=== PATIENT | male | born 1970 | race Caucasian/White ===

== ENCOUNTER 2019-06-02 00:01 | Inpatient (IN) ==
[2019-06-02] MEDS ORDERED: Ondansetron 4 MG/2 ML VIAL IVP ONE (00:22)
[2019-06-02] MEDS ORDERED: 0.9 % Sodium Chloride 1,000 ML IVC ONE (00:31)
[2019-06-02] MEDS ORDERED: Isovue-370 500 ML BOTTLE IVP ONE (00:31)
[2019-06-02] MEDS ORDERED: *HR* HYDROmorphone (PF) 1 MG/ML SYRINGE IVP ONE ×2 (00:31→01:32)
[2019-06-02 00:55] LABS: Basophils % 0.5 %; Eosinophils # 0.3 K/mcL (0.0-0.6); Eosinophils % 4.6 %; Hematocrit 41.6 % (37.5-50.1); Hemoglobin 14.4 g/dL (12.9-16.9); Immature Granulocytes % 0.3 % (0-4); Lymphocytes # 2.7 K/mcL (0.6-4.6); Lymphocytes % 40.7 %; Mean Corpuscular HGB Conc 34.6 g/dL (31.6-35.5); Mean Corpuscular Hemoglobin 33.5 pg (28.0-33.3); Mean Corpuscular Volume 96.7 fL (83.0-100.0); Monocytes # 0.5 K/mcL (0.0-1.3); Monocytes % 7.6 %; Platelet Count 281 K/mcL (140-400); Red Cell Distribution Width 12.6 % (11.5-14.5); Segmented Neutrophils % 46.3 %; White Blood Count 6.5 K/mcL (4.3-11.1)
[2019-06-02 01:06] LABS: Alanine Aminotransferase 41 Units/L (7-52); Albumin 4.4 g/dL (3.5-5.7); Albumin/Globulin Ratio 1.5 (1.1-2.2); Alkaline Phosphatase 110 Units/L (34-104); Aspartate Amino Transferase 48 Units/L (13-39); BUN/Creatinine Ratio 8 (6-26); Bilirubin,Direct 0.1 mg/dL (0.0-0.2); Bilirubin,Indirect 0.2 mg/dL (0.0-1.0); Bilirubin,Total 0.3 mg/dL (0.3-1.0); Blood Urea Nitrogen 7 mg/dL (6-20); Calcium 9.6 mg/dL (8.6-10.3); Carbon Dioxide 24 mEq/L (23-29); Chloride 103 mEq/L (98-107); Globulin 2.9 g/dL (2.4-3.5); Glucose 106 mg/dL (70-105); Lipase 42 Units/L (11-82); Osmolality,Calculated 276 (280-300); Potassium 4.5 mEq/L (3.5-5.1); Sodium 134 mEq/L (136-145); Total Protein 7.3 g/dL (6.4-8.9); eGFR For African Americans > 60 (> 60); eGFR For Non-African Americans > 60 (> 60)
[2019-06-02 02:37] LABS: Bilirubin,Urine Negative (Negative); Blood,Urine Negative (Negative); Clarity,Urine Clear (Clear); Color,Urine Yellow (Yellow); Glucose,Urine (UA) Normal (Normal); Ketones,Urine Trace mg/dL (Negative); Leukocyte Esterase,Urine Negative (Negative); Nitrite,Urine Negative (Negative); Protein,Urine Trace mg/dL (Neg-Trace); Specific Gravity,Urine > 1.030 (1.010-1.025); Urobilinogen,Urine Normal (Normal)
[2019-06-02] MEDS ORDERED: Naloxone 0.4 MG/ML INJ IVP PRN (04:04)
[2019-06-02] MEDS ORDERED: *HR* LORazepam 2 MG/ML VIAL IVP ONE (04:09)
[2019-06-02] MEDS ORDERED: Ondansetron 4 MG/2 ML VIAL IVP STA (04:09)
[2019-06-02] MEDS: 0.9 % Sodium Chloride 1,000 ML IVC SCH ×2 (04:20→17:56)
[2019-06-02] MEDS ORDERED: *HR* LORazepam 2 MG/ML VIAL IVP PRN ×3 (05:02→08:31)
[2019-06-02] MEDS: *HR* HYDROmorphone 2 MG/ML SYRINGE IVP PRN ×5 (05:02→23:15)
[2019-06-02] MEDS: *HR* Heparin 5,000 UNIT/ML VIAL SQ SCH ×3 (05:24→20:35)
[2019-06-02] MEDS: Nicotine 21 MG PATCH.TD24 TD SCH (07:49)
[2019-06-02] MEDS ORDERED: Folic Acid 1 MG TABLET PO SCH (09:00)
[2019-06-02] MEDS: Thiamine (B-1) 100 MG, Folic Acid 1 MG, MVI, adult with vitamin K 10 ML in 0.9 % Sodi... IVPB SCH (17:24)
[2019-06-02] MEDS: Ondansetron 4 MG/2 ML VIAL IVP PRN (20:35)
[2019-06-03] MEDS: Ondansetron 4 MG/2 ML VIAL IVP PRN (04:56)
[2019-06-03] MEDS: *HR* HYDROmorphone 2 MG/ML SYRINGE IVP PRN ×5 (04:58→22:31)
[2019-06-03] MEDS ORDERED: *HR* LORazepam 2 MG/ML VIAL IVP ONE (05:05)
[2019-06-03] MEDS: *HR* Heparin 5,000 UNIT/ML VIAL SQ SCH ×3 (05:05→19:46)
[2019-06-03 05:16] LABS: Basophils % 0.2 %; Eosinophils % 0.6 %; Hematocrit 41.9 % (37.5-50.1); Hemoglobin 14.1 g/dL (12.9-16.9); Immature Granulocytes % 0.4 % (0-4); Lymphocytes % 19.2 %; Mean Corpuscular HGB Conc 33.7 g/dL (31.6-35.5); Mean Corpuscular Hemoglobin 33.3 pg (28.0-33.3); Mean Corpuscular Volume 98.8 fL (83.0-100.0); Mean Platelet Volume 10.3 fL (9.4-12.4); Monocytes # 0.5 K/mcL (0.0-1.3); Monocytes % 10.5 %; Neutrophils # 3.5 K/mcL (1.6-8.9); Platelet Count 237 K/mcL (140-400); Red Blood Count 4.24 M/mcL (4.19-5.50); Red Cell Distribution Width 13.2 % (11.5-14.5); Segmented Neutrophils % 69.1 %
[2019-06-03 05:21] LABS: INR 0.9; Prothrombin Time 9.7 Seconds (9.4-12.1)
[2019-06-03 05:30] LABS: Alanine Aminotransferase 28 Units/L (7-52); Albumin 4.1 g/dL (3.5-5.7); Albumin/Globulin Ratio 1.5 (1.1-2.2); Alkaline Phosphatase 109 Units/L (34-104); Aspartate Amino Transferase 27 Units/L (13-39); BUN/Creatinine Ratio 10 (6-26); Bilirubin,Total 0.6 mg/dL (0.3-1.0); Blood Urea Nitrogen 9 mg/dL (6-20); Calcium 9.4 mg/dL (8.6-10.3); Carbon Dioxide 26 mEq/L (23-29); Chloride 102 mEq/L (98-107); Globulin 2.8 g/dL (2.4-3.5); Glucose 95 mg/dL (70-105); Magnesium 1.8 mg/dL (1.6-2.6); Osmolality,Calculated 282 (280-300); Phosphorous 3.3 mg/dL (2.7-4.5); Potassium 4.4 mEq/L (3.5-5.1); Sodium 137 mEq/L (136-145); Total Protein 6.9 g/dL (6.4-8.9); eGFR For African Americans > 60 (> 60); eGFR For Non-African Americans > 60 (> 60)
[2019-06-03] MEDS: Nicotine 21 MG PATCH.TD24 TD SCH (08:59)
[2019-06-03] MEDS: 0.9 % Sodium Chloride 1,000 ML IVC SCH ×2 (11:37→19:46)
[2019-06-03] MEDS: lisinopriL 5 MG TABLET PO SCH (13:32)
[2019-06-03] MEDS: Thiamine (B-1) 100 MG, Folic Acid 1 MG, MVI, adult with vitamin K 10 ML in 0.9 % Sodi... IVPB SCH (17:22)
[2019-06-03] MEDS ORDERED: Chloraseptic Spray 177 ML BOTTLE MM PRN (23:13)
[2019-06-03] MEDS ORDERED: Benzocaine 20% 12 APPL GEL..GRAM. TP PRN (23:13)
[2019-06-04] MEDS: 0.9 % Sodium Chloride 1,000 ML IVC SCH ×3 (03:05→18:58)
[2019-06-04] MEDS: *HR* HYDROmorphone 2 MG/ML SYRINGE IVP PRN (03:05)
[2019-06-04] MEDS: *HR* Heparin 5,000 UNIT/ML VIAL SQ SCH ×3 (05:35→20:44)
[2019-06-04] MEDS: Nicotine 21 MG PATCH.TD24 TD SCH (08:03)
[2019-06-04] MEDS: lisinopriL 5 MG TABLET PO SCH (08:03)
[2019-06-04] MEDS: Thiamine (B-1) 100 MG, Folic Acid 1 MG, MVI, adult with vitamin K 10 ML in 0.9 % Sodi... IVPB SCH (16:59)
[2019-06-05] MEDS: *HR* Heparin 5,000 UNIT/ML VIAL SQ SCH (05:53)
[2019-06-05] MEDS: 0.9 % Sodium Chloride 1,000 ML IVC SCH (05:54)
[2019-06-05 06:38] VITALS: BP 160/84
[2019-06-05] MEDS ORDERED: Famotidine 20 MG TABLET PO SCH (07:30)
[2019-06-05] MEDS: Nicotine 21 MG PATCH.TD24 TD SCH (08:10)
[2019-06-05] MEDS ORDERED: Aspirin Enteric Coated 81 MG Tablet PO SCH (09:00)
[2019-06-05] MEDS ORDERED: lisinopriL 20 MG TABLET PO SCH (09:00)
[2019-06-05] MEDS ORDERED: Sucralfate 1 GM TABLET PO SCH (09:00)
== END 2019-06-05 10:02 | disposition home or self-care (01) ==
LOC: 3ANU 00:01 → EMEROOARM 00:01 → SUATTDRO 03:20 → 3ANU 04:29
PROVIDERS: ADMIT Internal Medicine; ATTEND Internal Medicine